=== PATIENT | female | born 1980 | race Caucasian/White ===

== ENCOUNTER 2017-04-28 20:02 | Emergency (ER) | payer SELFPAY ==
[~2017-04-28] VITALS: Ht 165.1 cm; Wt 104.3 kg
[~2017-04-28 20:02] MED LIST: CITA40TA5 PO; DICY10CA3 PO; HYDR-2758 PO; HYDR-971 PO; LISI-334 PO; NAPR-683 PO; NAPR500T4 PO; PROM25TA10 PO
[2017-04-28 20:29] LABS: BILIRUBIN,URINE NEGATIVE (NEG); GLUCOSE,URINE NEGATIVE (NEG); NITRITE,URINE POSITIVE (NEG); PROTEIN,URINE 30 mg/dL (NEG-TRACE)
[2017-04-28] MEDS ORDERED: ONDANSETRON PF 4 MG/2 ML VIAL. IV ONE (20:30)
[2017-04-28] MEDS ORDERED: IV NORMAL SALINE 1000ML BAG 1,000 ML IV ONE (20:30)
[2017-04-28 20:37] LABS: BACTERIA,URINE MODERATE /HPF (0-FEW); RBC,URINE OCC /HPF (0-2); SQUAMOUS EPITHELIAL CELL,UR MOD /LPF; WBC,URINE >40 /HPF (0-4)
--- NOTE | 2017-04-28 20:38 | PHYS DOC ---
Past Medical History Past Medical History: Hypertension, Kidney Stone, Other Additional Past Medical Histor: chronic back pain, fibroids Past Surgical History: Appendectomy, Tubal ligation, Other Additional Past Surgical Histo: CYSTOSCOPY WITH STENT PLACEMENT & REMOVAL, LITHOTRIPSY, Uterine ablation Alcohol Use: None Drug Use: None Adult General Chief Complaint Chief Complaint: PAIN ON URINATION [facility] HPI Patient is a 37 year old female presents to the emergency room stating she's been having chest pain on and off. She states she has a history of hypertension which she does not take medicine for her because she cannot afford to purchase it. Patient states she actually came to the emergency department tonight because she was having bilateral flank pain with painful urination. She states this has been going on for the last few days. She states that she has had some nausea however has not vomited. She denies any fever or chills. Patient states she has not taken anything for the pain or discomfort. She states that she did try to drink plenty of fluids to help flush the kidneys but however was not very successful to the nausea feeling. Review of Systems Review of Systems Constitutional: Denies fever or chills [] Eyes: Denies change in visual acuity, redness, or eye pain [] HENT: Denies nasal congestion or sore throat [] Respiratory: Denies cough or shortness of breath [] Cardiovascular: No additional information not addressed in HPI [] GI: Denies abdominal pain, vomiting, bloody stools or diarrhea C/o nausea : dysuria denies hematuria [] Musculoskeletal: bilateral flank pain Integument: Denies rash or skin lesions [] Neurologic: Denies headache, focal weakness or sensory changes [] Endocrine: Denies polyuria or polydipsia [] All other systems were reviewed and found to be within normal limits, except as documented in this note. Current Medications Current Medications Current Medications Medications (Trade) Dose Ordered Sig/Tameka Start Time Stop Time Status Last Admin Dose Admin Ciprofloxacin/ Dextrose 200 ml @ 200 mls/hr Q12HR 04/28/17 21:00 04/28/17 21:06 200 MLS/HR Clonidine HCl (Catapres) 0.2 mg 1X ONCE 04/28/17 20:45 04/28/17 20:46 DC 04/28/17 21:05 0.2 MG Ondansetron HCl (Zofran) 4 mg 1X ONCE 04/28/17 20:30 04/28/17 20:32 DC 04/28/17 21:03 4 MG Sodium Chloride 1,000 ml @ 1,000 mls/hr 1X ONCE 04/28/17 20:30 04/28/17 21:29 04/28/17 21:05 1,000 MLS/HR Allergies Allergies Allergies Coded Allergies Type Severity Reaction Last Updated Verified tramadol Allergy Severe ITCHING AND HEADACHE 05/03/14 Yes Physical Exam Physical Exam Constitutional: Well developed, well nourished, no acute distress, non-toxic appearance. [] HENT: Normocephalic, atraumatic, bilateral external ears normal, oropharynx moist, no oral exudates, nose normal. [] Eyes: PERRLA, EOMI, conjunctiva normal, no discharge. [] Neck: Normal range of motion, no tenderness, supple, no stridor. [] Cardiovascular:Heart rate regular rhythm, no murmur [] Lungs & Thorax: Bilateral breath sounds clear to auscultation [] Abdomen: Bowel sounds hypoactive, soft, no tenderness, no masses, no pulsatile masses. [] Skin: Warm, dry, no erythema, no rash. [] Back: No tenderness, bilateral CVA tenderness. [] Extremities: No tenderness, no cyanosis, no clubbing, ROM intact, no edema. [] Neurologic: Alert and oriented X 3, normal motor function, normal sensory function, no focal deficits noted. [] Psychologic: Affect normal, judgement normal, mood normal. [] Current Patient Data Vital Signs Vital Signs Date Time Temp Pulse Resp B/P (MAP) Pulse Ox O2 Delivery O2 Flow Rate FiO2 04/28/17 21:05 86 169/79 04/28/17 20:30 98.1 16 97 Room Air 98.1 Lab Values Laboratory Tests Test 04/28/17 20:04 04/28/17 20:23 04/28/17 20:45 Urine Collection Type Unknown Urine Color Yellow Urine Clarity Cloudy Urine pH 6.0 Urine Specific [place] 1.025 Urine Protein 30 mg/dL (NEG-TRACE) Urine Glucose (UA) Negative mg/dL (NEG) Urine Ketones (Stick) Negative mg/dL (NEG) Urine Blood Negative (NEG) Urine Nitrite Positive (NEG) Urine Bilirubin Negative (NEG) Urine Urobilinogen Dipstick 1.0 mg/dL (0.2 mg/dL) Urine Leukocyte Esterase Moderate (NEG) Urine RBC Occ /HPF (0-2) Urine WBC >40 /HPF (0-4) Urine Squamous Epithelial Cells Mod /LPF Urine Bacteria Moderate /HPF (0-FEW) Urine Mucus Marked /LPF POC Urine HCG, Qualitative Hcg negative (Negative) White Blood Count 11.8 x10^3/uL (4.0-11.0) H Red Blood Count 4.77 x10^6/uL (3.50-5.40) Hemoglobin 14.2 g/dL (12.0-15.5) Hematocrit 42.5 % (36.0-47.0) Mean Corpuscular Volume 89 fL (79-100) Mean Corpuscular Hemoglobin 30 pg (25-35) Mean Corpuscular Hemoglobin Concent 33 g/dL (31-37) Red Cell Distribution Width 12.4 % (11.5-14.5) Platelet Count 227 x10^3/uL (140-400) Neutrophils (%) (Auto) 68 % (31-73) Lymphocytes (%) (Auto) 23 % (24-48) L Monocytes (%) (Auto) 8 % (0-9) Eosinophils (%) (Auto) 1 % (0-3) Basophils (%) (Auto) 1 % (0-3) Neutrophils # (Auto) 8.0 x10^3uL (1.8-7.7) H Lymphocytes # (Auto) 2.7 x10^3/uL (1.0-4.8) Monocytes # (Auto) 0.9 x10^3/uL (0.0-1.1) Eosinophils # (Auto) 0.1 x10^3/uL (0.0-0.7) Basophils # (Auto) 0.2 x10^3/uL (0.0-0.2) Sodium Level 142 mmol/L (136-145) Potassium Level 3.5 mmol/L (3.5-5.1) Chloride Level 103 mmol/L (98-107) Carbon Dioxide Level 30 mmol/L (21-32) Anion Gap 9 (6-14) Blood Urea Nitrogen 12 mg/dL (7-20) Creatinine 0.7 mg/dL (0.6-1.0) Estimated GFR (Cockcroft-Gault) 93.6 BUN/Creatinine Ratio 17 (6-20) Glucose Level 100 mg/dL (70-99) H Calcium Level 9.3 mg/dL (8.5-10.1) Total Bilirubin 0.3 mg/dL (0.2-1.0) Aspartate Amino Transferase (AST) 12 U/L (15-37) L Alanine Aminotransferase (ALT) 17 U/L (14-59) Alkaline Phosphatase 83 U/L (46-116) Troponin I Quantitative < 0.017 ng/mL (0.000-0.055) Total Protein 7.6 g/dL (6.4-8.2) Albumin 3.5 g/dL (3.4-5.0) Albumin/Globulin Ratio 0.9 (1.0-1.7) L Laboratory Tests 04/28/17 20:45 Laboratory Tests 04/28/17 20:45 EKG EKG EKG was completed with a heart rate of 86 sinus rhythm noted no ectopy noted no STEMI noted per [] Radiology/Procedures Radiology/Procedures [] Course & Med Decision Making Course & Med Decision Making Pertinent Labs and Imaging studies reviewed. (See chart for details) Patient denies chest pain, SOA at this time she states she has problems with lower leg swelling. Patients BP is elevated currently. 2127 urinalysis was positive for urinary tract infection. Patient had bilateral flank pain. Patient was placed on Cipro here in the emergency department. She was provided with 1 L of IV fluids she is provided with Zofran for nausea. She was provided with clonidine due to elevated blood pressure. She was also provided with hydrocodone for pain and discomfort. Patient will be discharged home in stable condition with recommendations for Cipro twice a day for the next 7 days. She'll be provided with Zofran to take at home for nausea and vomiting. She'll be provided with hydrocodone for pain and discomfort. She is recommended to drink plenty of fluids such as water and cranberry juice. She was also recommended to follow-up with a primary care physician in the next 3-5 days. Patient will also be provided with clonidine patch in which she complains on to prevent prevent rebound hypertension. Patient was recommended to follow up with her primary care physician in regards to her blood pressure and medication regimen. I've spoken with the patient and/or caregivers. I've explained the patient's condition, diagnosis and treatment plan based on information available to me at this time. I've answered the patient's and/or caregivers questions and addressed any concerns. The patient and/or caregivers have a good understanding the patient's diagnosis, condition and treatment plan as can be expected at this point. Vital signs have been stabilized. The patient's condition is stable for discharge from the emergency department. The patient will pursue further outpatient evaluation with her primary care provider or other designated consulting physician as outlined in the discharge instructions. Patient and/or caregivers are agreeable to this plan of care and follow-up instructions have been explained in detail. The patient and/or caregivers have received these instructions in written format and expressed understanding of these discharge instructions. The patient and her caregivers are aware that if any significant change in condition or worsening of symptoms should prompt him to immediately return to this of the closest emergency department. If an emergent department is not readily available I would encourage him to call 911. [] Dragon Disclaimer Dragon Disclaimer This electronic medical record was generated, in whole or in part, using a voice recognition dictation system. Departure Departure Impression: Primary Impression: Pyelonephritis Disposition: HOME, SELF-CARE Condition: STABLE Referrals: MAMADOU MARTINEZ MD (PCP) Patient Instructions: Pyelonephritis, Adult, [id number] Additional Instructions: Activity as tolerated. Medications as prescribed. Hydrocodone DROWSINESS did not take today be alert and oriented. Drink plenty of fluids such as water and cranberry juice. Avoid cranberry juice cocktail, carbonated beverages, caffeine, alcohol, citrus fruits, and caffeine as these are considered to the bladder. Follow-up with her primary care physician in 3-5 days. Return back to emergency department for signs and symptoms of worse. Scripts Hydrocodone/Apap 5-325 (NORCO 5-325 TABLET) 1 Each Tablet 1 TAB PO PRN Q6HRS Y for PAIN, #15 TAB 0 Refills Prov: MARAL CHEATHAM APRN 04/28/17 Ondansetron (ZOFRAN ODT) 4 Mg Tab.rapdis 1 TAB SL Q8HRS, #10 TAB Prov: MARAL CHEATHAM APRN 04/28/17 Ciprofloxacin Hcl (CIPRO) 500 Mg Tablet 1 TAB PO BID, #14 TAB Prov: MARAL CHEATHAM APRN 04/28/17 Clonidine (CLONIDINE TTS-1) 1 Each Patch.tdwk 1 PATCH TD WEEKLY, #3 PATCH Prov: MARAL CHEATHAM APRN 04/28/17 MARAL CHEATHAM APRN Apr 28, 2017 20:38
[2017-04-28] MEDS ORDERED: cloNIDine HCL 0.1 MG TABLET PO ONE (20:45)
[2017-04-28 20:55] LABS: BASO # 0.2 x10^3/uL (0.0-0.2); BASO % 1 % (0-3); EOS % 1 % (0-3); HEMATOCRIT 42.5 % (36.0-47.0); HEMOGLOBIN 14.2 g/dL (12.0-15.5); LYMPH # 2.7 x10^3/uL (1.0-4.8); LYMPH % 23 % (24-48); MEAN CORPUSCULAR HEMOGLOBIN 30 pg (25-35); MEAN CORPUSCULAR HGB CONC 33 g/dL (31-37); MEAN CORPUSCULAR VOLUME 89 fL (79-100); MONO % 8 % (0-9); NEUT % 68 % (31-73); PLATELET COUNT 227 x10^3/uL (140-400); RED BLOOD COUNT 4.77 x10^6/uL (3.50-5.40); RED CELL DISTRIBUTION WIDTH 12.4 % (11.5-14.5); WHITE BLOOD COUNT 11.8 x10^3/uL (4.0-11.0)
[2017-04-28] MEDS ORDERED: CIPROFLOXACIN 400MG PREMIX 200 ML IV SCH (21:00)
[2017-04-28 21:09] LABS: CALCIUM 9.3 mg/dL (8.5-10.1); CREATININE 0.7 mg/dL (0.6-1.0); GFR 93.6; POTASSIUM 3.5 mmol/L (3.5-5.1)
[2017-04-28 21:14] LABS: ALBUMIN 3.5 g/dL (3.4-5.0); ALBUMIN/GLOBULIN RATIO 0.9 (1.0-1.7); TOTAL BILIRUBIN 0.3 mg/dL (0.2-1.0); TOTAL PROTEIN 7.6 g/dL (6.4-8.2)
[2017-04-28] MEDS ORDERED: ONDA4TAB10 SL (21:33)
[2017-04-28] MEDS ORDERED: CLON1PAT TD (21:33)
[2017-04-28] MEDS ORDERED: CIPR500T94 PO (21:33)
[2017-04-28] MEDS ORDERED: HYDR-971 PO (21:33)
[2017-04-28] MEDS ORDERED: HYDROcodone/APAP 5/325MG 1 TAB TABLET PO ONE (22:00)
[2017-04-28 22:10] VITALS: BP 170/87
--- NOTE | 2017-04-29 06:45 | EKG ---
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
== END 2017-04-28 22:24 | disposition home or self-care (01) ==
LOC: ER 20:02
DX: N12 Tubulo-interstitial nephritis, not specified as acute or chronic (principal); I10 Essential (primary) hypertension; G89.29 Other chronic pain; Z87.442 Personal history of urinary calculi; Z98.51 Tubal ligation status; Z88.5 Allergy status to narcotic agent
CPT/HCPCS: 36415; 80053; 81001; 81025; 84484; 85025; 87086; 93005; 96365; 96375; 99285; J0744; J2405; J7030; 87186

== ENCOUNTER 2017-07-19 20:38 | Emergency (ER) | payer SELFPAY ==
[2017-07-19 21:12] LABS: URINE HCG POC HCG NEGATIVE (Negative)
[2017-07-19 21:39] LABS: ADD MAN DIFF? NO; BILIRUBIN,URINE NEGATIVE (NEG); CLARITY,URINE CLEAR; COLOR,URINE YELLOW; GLUCOSE,URINE NEGATIVE (NEG); NITRITE,URINE NEGATIVE (NEG); PROTEIN,URINE NEGATIVE (NEG-TRACE)
[2017-07-19 21:41] LABS: BASO # 0.1 x10^3/uL (0.0-0.2); BASO % 1 % (0-3); EOS # 0.2 x10^3/uL (0.0-0.7); EOS % 2 % (0-3); HEMATOCRIT 42.9 % (36.0-47.0); HEMOGLOBIN 14.5 g/dL (12.0-15.5); LYMPH # 2.7 x10^3/uL (1.0-4.8); LYMPH % 29 % (24-48); MEAN CORPUSCULAR HEMOGLOBIN 30 pg (25-35); MEAN CORPUSCULAR HGB CONC 34 g/dL (31-37); MEAN CORPUSCULAR VOLUME 90 fL (79-100); MONO # 0.9 x10^3/uL (0.0-1.1); MONO % 10 % (0-9); NEUT # 5.5 x10^3uL (1.8-7.7); NEUT % 58 % (31-73); PLATELET COUNT 214 x10^3/uL (140-400); RED BLOOD COUNT 4.78 x10^6/uL (3.50-5.40); RED CELL DISTRIBUTION WIDTH 13.1 % (11.5-14.5); WHITE BLOOD COUNT 9.4 x10^3/uL (4.0-11.0)
[2017-07-19 21:46] LABS: BACTERIA,URINE MODERATE /HPF (0-FEW); HYALINE CASTS, URINE FEW /HPF; RBC,URINE OCC /HPF (0-2); SQUAMOUS EPITHELIAL CELL,UR MOD /LPF
[2017-07-19 21:59] LABS: ANION GAP 6 (6-14); BLOOD UREA NITROGEN 14 mg/dL (7-20); BUN/CREATININE RATIO 16 (6-20); CALCIUM 8.5 mg/dL (8.5-10.1); CARBON DIOXIDE 30 mmol/L (21-32); CHLORIDE 102 mmol/L (98-107); CREATININE 0.9 mg/dL (0.6-1.0); GFR 70.1; GLUCOSE 78 mg/dL (70-99); POTASSIUM 3.4 mmol/L (3.5-5.1); SODIUM 138 mmol/L (136-145)
[2017-07-19] MEDS: MORPHINE SULFATE 4 MG/ML DISP.SYRIN. IV ×2 (22:01)
[2017-07-19 22:05] LABS: ALBUMIN 3.5 g/dL (3.4-5.0); ALBUMIN/GLOBULIN RATIO 0.9 (1.0-1.7); ALK PHOS 79 U/L (46-116); ALT (SGPT) 18 U/L (14-59); AST (SGOT) 13 U/L (15-37); TOTAL BILIRUBIN 0.2 mg/dL (0.2-1.0); TOTAL PROTEIN 7.5 g/dL (6.4-8.2)
[2017-07-19 22:34] LABS: TROPONINI < 0.017 ng/mL (0.000-0.055)
== END 2017-07-20 00:57 | disposition home or self-care (01) ==
LOC: ER 07-20 00:57
DX: N39.0 Urinary tract infection, site not specified (principal); D25.9 Leiomyoma of uterus, unspecified; N83.209 Unspecified ovarian cyst, unspecified side; I10 Essential (primary) hypertension; G89.29 Other chronic pain; Z87.442 Personal history of urinary calculi; Z98.51 Tubal ligation status; Z88.5 Allergy status to narcotic agent
CPT/HCPCS: 71045; 76830; 76856; 80053; 81001; 81025; 84484; 85025; 87086; 87491; 87591; 93005; 96374; 99285-25; J2270

== ENCOUNTER 2017-08-17 20:24 | Emergency (ER) | payer SELFPAY ==
[2017-08-18 08:34] LABS: NEGATIVE OBC STREP NEG; POSITIVE OBC STREP POS
== END 2017-08-17 21:30 | disposition home or self-care (01) ==
LOC: ER 20:24
DX: J02.0 Streptococcal pharyngitis (principal); I10 Essential (primary) hypertension; G89.29 Other chronic pain; Z87.442 Personal history of urinary calculi; Z90.49 Acquired absence of other specified parts of digestive tract; Z98.51 Tubal ligation status; Z88.5 Allergy status to narcotic agent
CPT/HCPCS: 87880; 99283

== ENCOUNTER 2017-10-04 22:44 | Emergency (ER) | payer SELFPAY ==
[2017-10-04] MEDS: KETOROLAC 60 MG/2 ML INJ. IM (23:09)
== END 2017-10-04 23:17 | disposition home or self-care (01) ==
LOC: ER 23:17
DX: M54.32 Sciatica, left side (principal); G89.29 Other chronic pain; I10 Essential (primary) hypertension; Z87.442 Personal history of urinary calculi; Z88.6 Allergy status to analgesic agent
CPT/HCPCS: 96372; 99283; J1885

== ENCOUNTER 2017-10-27 19:20 | Emergency (ER) | payer SELFPAY ==
[2017-10-27 19:39] LABS: ADD MAN DIFF? NO
[2017-10-27 19:40] LABS: BASO # 0.1 x10^3/uL (0.0-0.2); BASO % 1 % (0-3); EOS # 0.4 x10^3/uL (0.0-0.7); EOS % 3 % (0-3); HEMATOCRIT 41.2 % (36.0-47.0); HEMOGLOBIN 14.4 g/dL (12.0-15.5); LYMPH # 3.5 x10^3/uL (1.0-4.8); LYMPH % 28 % (24-48); MEAN CORPUSCULAR HEMOGLOBIN 31 pg (25-35); MEAN CORPUSCULAR HGB CONC 35 g/dL (31-37); MEAN CORPUSCULAR VOLUME 89 fL (79-100); MONO % 8 % (0-9); NEUT # 7.5 x10^3uL (1.8-7.7); NEUT % 60 % (31-73); PLATELET COUNT 224 x10^3/uL (140-400); RED BLOOD COUNT 4.64 x10^6/uL (3.50-5.40); RED CELL DISTRIBUTION WIDTH 12.9 % (11.5-14.5); WHITE BLOOD COUNT 12.5 x10^3/uL (4.0-11.0)
[2017-10-27 19:52] LABS: ANION GAP 7 (6-14); BLOOD UREA NITROGEN 15 mg/dL (7-20); BUN/CREATININE RATIO 15 (6-20); CALCIUM 8.9 mg/dL (8.5-10.1); CARBON DIOXIDE 29 mmol/L (21-32); CHLORIDE 101 mmol/L (98-107); GFR 62.1; GLUCOSE 103 mg/dL (70-99); SODIUM 137 mmol/L (136-145)
[2017-10-27] MEDS: ASPIRIN 325 MG TABLET PO (19:53)
[2017-10-27] MEDS: LIDO:MAALOX 1:1 20 ML SINGLE DOSE. SWSW (19:53)
[2017-10-27 19:58] LABS: ALBUMIN 3.6 g/dL (3.4-5.0); ALBUMIN/GLOBULIN RATIO 0.8 (1.0-1.7); ALK PHOS 94 U/L (46-116); ALT (SGPT) 24 U/L (14-59); AST (SGOT) 16 U/L (15-37); LIPASE 61 U/L (73-393); TOTAL BILIRUBIN 0.2 mg/dL (0.2-1.0); TOTAL PROTEIN 7.9 g/dL (6.4-8.2)
[2017-10-27 20:00] LABS: TROPONINI < 0.017 ng/mL (0.000-0.055)
== END 2017-10-27 20:30 | disposition home or self-care (01) ==
LOC: ER 19:20
DX: R07.89 Other chest pain (principal); I10 Essential (primary) hypertension; G89.29 Other chronic pain; Z98.51 Tubal ligation status; Z88.5 Allergy status to narcotic agent; Z87.442 Personal history of urinary calculi
CPT/HCPCS: 36415; 71045; 80053; 83690; 84484; 85025; 93005; 99285-25

== ENCOUNTER 2018-10-08 20:23 | Emergency (ER) | payer SELFPAY ==
[~2018-10-08] VITALS: Ht 167.6 cm; Wt 104.3 kg
[~2018-10-08 20:23] MED LIST changes: +ACET1TAB33 PO; +CIPR500T94 PO; +CLON1PAT TD; +CYCL10TA2 PO; -HYDR-2758 PO; +HYDR-2761 PO; +HYDR-3164 PO; -HYDR-971 PO; +NAPR-514 PO; -NAPR500T4 PO; +NITR100C62 PO; +ONDA4TAB10 SL; +PENI500T PO
[2018-10-08 20:33] VITALS: BP 203/103
--- NOTE | 2018-10-08 21:17 | PHYS DOC ---
Past Medical History Past Medical History: Hypertension, Kidney Stone, Other Additional Past Medical Histor: chronic back pain, fibroids (MELCHOR JOHNSON APRN) Past Surgical History: Appendectomy, Tubal ligation, Other Additional Past Surgical Histo: CYSTOSCOPY WITH STENT PLACEMENT & REMOVAL, LITHOTRIPSY, Uterine ablation (MELCHOR JOHNSON APRN) Smoking: Cigarettes, Less than 1pk/day Alcohol Use: None Drug Use: None (MELCHOR JOHNSON APRN) Adult General Chief Complaint Chief Complaint: LOWER EXTREMITY SWELLING HPI HPI Patient is a 38-year-old female who presents to ER with the chief complaint of right knee and calf pain that started 3 days ago and has persisted constantly. It is described as a constant throbbing pain which is rated at a severity of 7/10. At night she elevated the leg and states that helps her pain somewhat. Nothing completely makes the pain better. The patient states that she had a similar episode 2-3 months ago and was seen at [facility]. She states that she had fluid on her knees and they took a sample and that they told her to take ibuprofen and it improved. Patient states that she has been taking ibuprofen and Tylenol at home the last time she had ibuprofen was 400 mg at 10 AM. Has been non-compliant with medical care due to financial reasons and has not been seeing a PCP. Has not taken Lisinopril for a year. (MELCHOR JOHNSON APRN) Review of Systems Review of Systems General: Denies fevers, States that she gets "hot flashes" HEENT: Denies sore throat, or changes in vision. Respiratory: Denies cough or shortness of breath. Cardiac: Denies chest pain or palpitations. GI: Denies nausea, denies vomiting, denies diarrhea : Denies dysuria, or frequency. Skin: Denies rashes, or sores. Musculoskeletal: Extremity pain to the R knee and R calf. Neurological: Denies headache, or dizziness. Psychiatric: Denies SI, or HI. Complete Systems were reviewed and found to be within normal limits, except as documented in this note. (MELCHOR JOHNSON APRN) Current Medications Current Medications Current Medications Medications (Trade) Dose Ordered Sig/Tameka Start Time Stop Time Status Last Admin Dose Admin Dexamethasone (Decadron) 10 mg 1X ONCE 10/08/18 21:30 10/08/18 21:31 DC 10/08/18 21:30 10 MG Ibuprofen (Motrin) 800 mg 1X ONCE 10/08/18 21:30 10/08/18 21:31 DC 10/08/18 21:30 800 MG Ketorolac Tromethamine (Toradol Im) 30 mg 1X ONCE 10/08/18 21:30 10/08/18 21:30 DC (MELCHOR SHAH DO) Allergies Allergies Allergies Coded Allergies Type Severity Reaction Last Updated Verified ketorolac Allergy Intermediate HIVES 10/08/18 Yes (MELCHOR SHHA DO) Physical Exam Physical Exam Constitutional: Well developed, well nourished, no acute distress, non-toxic appearance. [] HENT: Normocephalic, atraumatic, oropharynx moist. [] Eyes: conjunctiva normal, no discharge. [] Neck: Normal range of motion, no tenderness. [] Cardiovascular:Heart rate regular rhythm, no murmur [] Lungs & Thorax: Bilateral breath sounds clear to auscultation [] Abdomen: Soft, no masses, no pulsatile masses. States that she has chronic tenderness. Skin: Warm, dry, no erythema, no rash. [] Extremities: Tenderness to the R calf, and R knee, reduced ROM due to pain. [] Neurologic: Alert and oriented X 3, normal sensory function in the bilateral lower extremities. Psychologic: Affect normal, judgement normal, mood normal. [] (MELCHOR JOHNSON APRN) Current Patient Data Vital Signs Vital Signs Date Time Temp Pulse Resp B/P (MAP) Pulse Ox O2 Delivery O2 Flow Rate FiO2 10/08/18 20:33 99.9 103 20 203/103 (136) 98 Room Air 99.9 (MELCHOR SHAH DO) EKG EKG [] (MELCHOR JOHNSON APRN) Radiology/Procedures Radiology/Procedures Preliminary read of the X-ray of the knee by Dr. Melchor Shah shows no acute fractures, or dislocations. []PATIENT: SAMARA REID MACCOUNT: [id number]#: [id number] : 1980 LOCATION: ER AGE: 38 SEX: F EXAM STATUS: REG ER ORD. PHYSICIAN: MELCHOR JOHNSON APRN REASON: calf pain; r/o dvt PROCEDURE: VENOUS LOWER EXTREMITY RIGHT Right Lower Extremity Venous Doppler Ultrasound History: 3 days of calf pain Comparison: None Procedure: Color flow, duplex, spectral analysis and 2D images are obtained with and without compression in the area of the common femoral vein, superficial femoral vein - femoral vein junction, main femoral vein (superficial femoral vein) and popliteal vein. Veins of the proximal calf are also imaged. Findings: There is normal duplex flow, color flow and compressibility of all visualized vein segments. No evidence of deep venous thrombus is present. Impression: No evidence of DVT. Electronically signed by: Ruben Dowell III, MD (10/08/2018 10:36 PM) [facility] (MELCHOR JOHNSON APRN) Course & Med Decision Making Course & Med Decision Making Pertinent Labs and Imaging studies reviewed. (See chart for details) 9:30 PM: Discussed with patient pain management. Nurse went into patient's room and patient states that she realized that she was allergic to toradol and not tramadol. Changed order to 800 mg of Ibuprofen. Discussed with patient the need to follow up with patient in regard to HTN. The patient states that she has a provider that she has recently found that will use income-based payment that she is planning on going to see. 10:45 PM: Discussed results of xray and ultrasound. Instructed patient to rest, wear kunal wrap, and take naproxen. Also instructed patient to follow up with pcp. Can also use warm compresses. Patient was agreeable to plan. (MELCHOR JOHNSON APRN) Dragon Disclaimer Dragon Disclaimer This electronic medical record was generated, in whole or in part, using a voice recognition dictation system. (MELCHOR JOHNSON APRN) Departure Departure Impression: Primary Impression: Bursitis Disposition: 01 HOME, SELF-CARE Condition: STABLE Referrals: NO PCP (PCP) Patient Instructions: Bursitis, [id number]-[id number] Additional Instructions: Thank you for allowing us to take care of you. Please as we discussed use warm compresses to the knee, use kunal wrap, use Naproxen as prescribed, and rest/elevate the extremity. Return to ER if you develop signs or symptoms of a septic joint such as fevers, redness, or warmth to the extremity. Scripts Naproxen (NAPROXEN) 500 Mg Tablet 1 TAB PO BID, #60 TAB 0 Refills Prov: MELCHOR JOHNSON APRN 10/08/18 Attending Signature Attending Signature I have reviewed the PA/FLATWORK WASHER's note and plan of care. I was available for consultation as needed during the patient's visit in the emergency department. I agree with the clinical impression, plan, and disposition. (MELCHOR SHAH DO) Problem Qualifiers Primary Impression: Bursitis Bursitis location: knee Knee bursitis location: suprapatellar bursitis Laterality: right Qualified Codes: M70.51 - Other bursitis of knee, right knee MELCHOR JOHNSON APRN Oct 08, 2018 21:17 MELCHOR SHAH DO Oct 09, 2018 05:41
[2018-10-08] MEDS ORDERED: KETOROLAC 60 MG/2 ML VIAL. IM ONE (21:30)
[2018-10-08] MEDS ORDERED: IBUPROFEN 400 MG TABLET. PO ONE (21:30)
[2018-10-08] MEDS ORDERED: DEXAMETHASONE 4 MG TABLET PO ONE (21:30)
[2018-10-08] MEDS ORDERED: NAPR-514 PO ×2 (22:00→22:02)
--- NOTE | 2018-10-08 22:39 | RAD ---
Right Lower Extremity Venous Doppler Ultrasound History: 3 days of calf pain Comparison: None Procedure: Color flow, duplex, spectral analysis and 2D images are obtained with and without compression in the area of the common femoral vein, superficial femoral vein - femoral vein junction, main femoral vein (superficial femoral vein) and popliteal vein. Veins of the proximal calf are also imaged. Findings: There is normal duplex flow, color flow and compressibility of all visualized vein segments. No evidence of deep venous thrombus is present. Impression: No evidence of DVT. Electronically signed by: Ruben Dowell III, MD (10/08/2018 10:36 PM) [facility]
--- NOTE | 2018-10-09 08:59 | RAD ---
3 view study of the right knee Clinical indications: Right knee pain. FINDINGS: No acute fracture or dislocation or lytic process is evident. Degenerative chondrocalcinosis of the medial and lateral menisci are seen. IMPRESSION: No acute fracture. Electronically signed by: Doe Feliz MD (10/09/2018 8:56 AM) [facility]
== END 2018-10-08 23:10 | disposition home or self-care (01) ==
LOC: ER 20:23
DX: M70.51 Other bursitis of knee, right knee (principal); M79.661 Pain in right lower leg; I10 Essential (primary) hypertension; G89.29 Other chronic pain; F17.210 Nicotine dependence, cigarettes, uncomplicated; Z90.89 Acquired absence of other organs; Z98.51 Tubal ligation status; Z91.14 Patient's other noncompliance with medication regimen; Z88.8 Allergy status to other drugs, medicaments and biological substances; Y93.89 Activity, other specified
CPT/HCPCS: 73562; 93971; 99284; J8540

== ENCOUNTER 2019-02-12 19:44 | Emergency (ER) | payer SELFPAY ==
[~2019-02-12] VITALS: Ht 167.6 cm; Wt 97.5 kg
[2019-02-12 22:16] VITALS: BP 187/100
[2019-02-12] MEDS ORDERED: BACI28.34 TP (22:28)
[2019-02-12] MEDS ORDERED: CEPH-264 PO (22:28)
--- NOTE | 2019-02-12 22:28 | PHYS DOC ---
Past Medical History Past Medical History: Hypertension, Kidney Stone, Other Additional Past Medical Histor: chronic back pain, fibroids Past Surgical History: Appendectomy, Tubal ligation, Other Additional Past Surgical Histo: CYSTOSCOPY WITH STENT PLACEMENT & REMOVAL, LITHOTRIPSY, Uterine ablation Alcohol Use: None Drug Use: None Adult General Chief Complaint Chief Complaint: INSECT BITE HPI HPI Patient is a 38 year old [f__sex] who presents with [] Review of Systems Review of Systems Constitutional: Denies fever or chills [] Eyes: Denies change in visual acuity, redness, or eye pain [] HENT: Denies nasal congestion or sore throat [] Respiratory: Denies cough or shortness of breath [] Cardiovascular: No additional information not addressed in HPI [] GI: Denies abdominal pain, nausea, vomiting, bloody stools or diarrhea [] : Denies dysuria or hematuria [] Musculoskeletal: Denies back pain or joint pain [] Integument: Denies rash or skin lesions [] Neurologic: Denies headache, focal weakness or sensory changes [] Endocrine: Denies polyuria or polydipsia [] All other systems were reviewed and found to be within normal limits, except as documented in this note. Allergies Allergies Allergies Coded Allergies Type Severity Reaction Last Updated Verified ketorolac Allergy Intermediate HIVES 10/08/18 Yes Physical Exam Physical Exam Constitutional: Well developed, well nourished, no acute distress, non-toxic appearance. [] HENT: Normocephalic, atraumatic, bilateral external ears normal, oropharynx moist, no oral exudates, nose normal. [] Eyes: PERRLA, EOMI, conjunctiva normal, no discharge. [] Neck: Normal range of motion, no tenderness, supple, no stridor. [] Cardiovascular:Heart rate regular rhythm, no murmur [] Lungs & Thorax: Bilateral breath sounds clear to auscultation [] Abdomen: Bowel sounds normal, soft, no tenderness, no masses, no pulsatile masses. [] Skin: Warm, dry, no erythema, no rash. [] Back: No tenderness, no CVA tenderness. [] Extremities: No tenderness, no cyanosis, no clubbing, ROM intact, no edema. [] Neurologic: Alert and oriented X 3, normal motor function, normal sensory function, no focal deficits noted. [] Psychologic: Affect normal, judgement normal, mood normal. [] Current Patient Data Vital Signs Vital Signs Date Time Temp Pulse Resp B/P (MAP) Pulse Ox O2 Delivery O2 Flow Rate FiO2 02/12/19 21:14 98.4 103 22 214/108 (143) 98 Room Air 98.4 EKG EKG [] Radiology/Procedures Radiology/Procedures [] Course & Med Decision Making Course & Med Decision Making Pertinent Labs and Imaging studies reviewed. (See chart for details) [] Dragon Disclaimer Dragon Disclaimer This electronic medical record was generated, in whole or in part, using a voice recognition dictation system. Departure Departure Impression: Primary Impression: Infected insect bite of right thigh Additional Impression: Cellulitis of right thigh Disposition: HOME, SELF-CARE Condition: STABLE Referrals: NO PCP (PCP) Patient Instructions: Cellulitis, Kugo-gj-Ealk, Insect Bite, [id number]-[id number] Additional Instructions: Fill the prescriptions and use them as directed. You may take Tylenol or ibuprofen as needed for pain or fever. Recommend application of warm moist heat to the area 4 times a day and as needed for comfort. Follow-up with her primary care doctor if symptoms persist, return to the ER if symptoms worsen. Scripts Bacitracin/Polymyxin B Sulfate (POLYSPORIN TOPICAL OINT) 28.3 Gm Oint...g. 1 JAZIEL TP TID for WOUND CARE, #1 TUBE 0 Refills DIRECTED BY PHYSICIAN Prov: NIDIA PAVON APRN 02/12/19 Cephalexin (KEFLEX) 500 Mg Capsule 1 CAP PO TID, #21 CAP 0 Refills Prov: NIDIA PAVON APRN 02/12/19 Problem Qualifiers Primary Impression: Infected insect bite of right thigh Encounter type: initial encounter Qualified Codes: S70.361A - Insect bite (nonvenomous), right thigh, initial encounter; L08.9 - Local infection of the skin and subcutaneous tissue, unspecified; W57.XXXA - Bitten or stung by nonvenomous insect and other nonvenomous arthropods, initial encounter NIDIA PAVON APRN Feb 12, 2019 22:28
== END 2019-02-12 22:45 | disposition home or self-care (01) ==
LOC: ER 19:44
DX: S70.361A Insect bite (nonvenomous), right thigh, initial encounter (principal); L08.9 Local infection of the skin and subcutaneous tissue, unspecified; I10 Essential (primary) hypertension; G89.29 Other chronic pain; Z88.6 Allergy status to analgesic agent; W57.XXXA Bitten or stung by nonvenomous insect and other nonvenomous arthropods, initial encounter; Y93.89 Activity, other specified; Y92.89 Other specified places as the place of occurrence of the external cause; Y99.8 Other external cause status
CPT/HCPCS: 99283

== ENCOUNTER 2019-12-18 11:32 | Emergency (ER) | payer SELFPAY ==
[~2019-12-18] VITALS: Ht 165.1 cm; Wt 113.0 kg
[~2019-12-18 11:32] MED LIST changes: +BACI28.34 TP; +CEPH-264 PO
[2019-12-18 12:17] VITALS: BP 186/100
[2019-12-18] MEDS ORDERED: predniSONE 10 MG TABLET PO ONE (12:30)
[2019-12-18] MEDS ORDERED: PRED20TA PO (12:38)
--- NOTE | 2019-12-18 12:39 | PHYS DOC ---
Past Medical History Past Medical History: Hypertension, Kidney Stone Additional Past Medical Histor: chronic back pain, fibroids Past Surgical History: Appendectomy, Tubal ligation, Other Additional Past Surgical Histo: "urinary stents", "ovary surgeries" Smoking Status: Former Smoker Alcohol Use: None Drug Use: None General Adult EDM: Chief Complaint: SKIN PROBLEM HPI: HPI: Patient is a 39 year old female who presents with generalized red itchy rash that started 3 days ago. Patient reports that she believes she got into some poison stacey. She has been taking Benadryl pills and applying Benadryl cream at home. He reports she has been trying to manage it at home but this morning she woke up and she had bilateral eye swelling and redness. Patient denies shortness of breath, nausea, vomiting, diarrhea, shortness of air, difficulty swallowing, fevers, vision difficulties. Review of Systems: Review of Systems: Constitutional: Denies fever or chills. [] Eyes: Denies change in visual acuity. [] HENT: Denies nasal congestion or sore throat. [] Respiratory: Denies cough or shortness of breath. [] Cardiovascular: Denies chest pain or edema. [] GI: Denies abdominal pain, nausea, vomiting, or diarrhea. [] Musculoskeletal: Denies back pain or joint pain. [] Integument: See HPI Neurologic: Denies headache, focal weakness or sensory changes. [] Lymphatic: Denies swollen glands. [] Psychiatric: Denies depression or anxiety. [] Heart Score: Risk Factors: Risk Factors: DM, Current or recent (<one month) smoker, HTN, HLP, family history of CAD, obesity. Risk Scores: Score 0 - 3: 2.5% MACE over next 6 weeks - Discharge Home Score 4 - 6: 20.3% MACE over next 6 weeks - Admit for Clinical Observation Score 7 - 10: 72.7% MACE over next 6 weeks - Early Invasive Strategies Current Medications: Current Medications Medications (Trade) Dose Ordered Sig/Tameka Start Time Stop Time Status Last Admin Dose Admin Prednisone (Prednisone) 50 mg 1X ONCE 12/18/19 12:30 12/18/19 12:31 DC Allergies: Allergies: Allergies Coded Allergies Type Severity Reaction Last Updated Verified ketorolac Allergy Intermediate HIVES 10/08/18 Yes Physical Exam: PE: Constitutional: Well developed, well nourished, no acute distress, non-toxic appearance. [] HENT: Normocephalic, atraumatic, bilateral external ears normal, nose normal[] Eyes: PERRLA, EOMI, conjunctiva normal, no discharge; bilateral eye swelling and redness noted to eyelids, no drainage Neck: Normal range of motion, no stridor. [] Cardiovascular:Heart rate regular rhythm Lungs & Thorax: Respirations even and unlabored, no retractions, no respiratory distress Skin: Warm, dry, generalized erythremic rash patchy slightly raised rash with some vesicles noted to face, trunk, and upper extremities bilat consistent with contact dermatitis Extremities: No cyanosis, ROM intact, no edema. [] Neurologic: Alert and oriented X 3, no focal deficits noted. [] Psychologic: Affect normal, judgement normal, mood normal. [] Current Patient Data: Vital Signs: Vital Signs Date Time Temp Pulse Resp B/P (MAP) Pulse Ox O2 Delivery O2 Flow Rate FiO2 12/18/19 12:17 98.7 91 16 186/100 (128) 98 98.7 EKG: EKG: [] Radiology/Procedures: Radiology/Procedures: [] Course & Med Decision Making: Course & Med Decision Making Pertinent Labs and Imaging studies reviewed. (See chart for details) [] Dragon Disclaimer: Dragon Disclaimer: This electronic medical record was generated, in whole or in part, using a voice recognition dictation system. Departure Departure Impression: Primary Impression: Contact dermatitis Qualified Codes: L25.9 - Unspecified contact dermatitis, unspecified cause Disposition: HOME, SELF-CARE Condition: STABLE Referrals: NO PCP (PCP) Patient Instructions: Contact Dermatitis, [id number] Additional Instructions: Fill prescription(s) and use as directed. Recommend [id number] Benadryl and [id number] Benadryl itch relief cream or calamine lotion for relief of itching. May also apply a mixture of 50% water 50% vinegar to affected areas to help dry rash up. Follow up with your primary care doctor if symptoms worsen or persist. Scripts Prednisone (PREDNISONE) 20 Mg Tablet 1 TAB PO UD for 12 Days, #15 TAB 2 tabs by mouth days 1,2,3 then 1.5 tabs by mouth days 4,5,6 then 1 tab by mouth days 7,8,9 then 0.5 tab by mouth day ,,12 Prov: [facility] TECHNICAL OFFICER 12/18/19 Justicifation of Admission Dx: Justifications for Admission: Justification of Admission Dx: N/A [employer] [employer] TECHNICAL OFFICER Dec 18, 2019 12:39
== END 2019-12-18 12:46 | disposition home or self-care (01) ==
LOC: ER 11:32
DX: L25.9 Unspecified contact dermatitis, unspecified cause (principal); I10 Essential (primary) hypertension; G89.29 Other chronic pain; Z87.891 Personal history of nicotine dependence; Z88.6 Allergy status to analgesic agent
CPT/HCPCS: 99283; J7512

== ENCOUNTER 2021-01-07 20:31 | Emergency (ER) | payer SELFPAY ==
[~2021-01-07] VITALS: Ht 165.1 cm; Wt 81.8 kg
[~2021-01-07 20:31] MED LIST changes: -LISI-334 PO; +LISI20TA18 PO; +PRED20TA PO
[2021-01-07] MEDS ORDERED: fentaNYL PF VIAL 100 MCG/2 ML VIAL IM ONE (22:15)
--- NOTE | 2021-01-07 22:29 | PHYS DOC ---
Past Medical History Past Medical History: Hypertension, Kidney Stone Additional Past Medical Histor: chronic back pain, fibroids Past Surgical History: Appendectomy, Tubal ligation, Other Additional Past Surgical Histo: "urinary stents", "ovary surgeries" Smoking Status: Former Smoker Alcohol Use: None Drug Use: None General Adult EDM: Chief Complaint: FOOT INJURY PAIN HPI: HPI: Patient is a 40 year old female who presents with left ankle/foot pain. The patient reports falling in her front yard and injuring her left ankle. Reports hearing "3 audible pops." The patients pain is localized to her lateral left ankle, is non-radiating, and is rated 9/10 in severity. She is unable to bear weight currently. The patient states that she previously "shattered" her left foot years ago. Patient denies head injury or LOC. Denies any other significant complaints at this time. Review of Systems: Review of Systems: Constitutional: Denies fever or chills Eyes: Denies redness or eye pain HENT: Denies nasal congestion or sore throat Respiratory: Denies cough or shortness of breath Cardiovascular: Denies chest pain or palpitations GI: Denies abdominal pain, nausea, or vomiting : Denies dysuria or hematuria Musculoskeletal: reports left ankle/foot pain; Denies back pain Integument: Reports black lesion on left foot; Denies rashes Neurologic: Denies headache, focal weakness or sensory changes Complete systems were reviewed and found to be within normal limits, except as documented in this note. Heart Score: C/O Chest Pain: N/A Current Medications: Current Medications Medications (Trade) Dose Ordered Sig/[facility] Start Time Stop Time Status Last Admin Dose Admin Fentanyl Citrate (Fentanyl 2ml Vial) 50 mcg 1X ONCE 01/07/21 22:15 01/07/21 22:16 DC Allergies: Allergies: Allergies Coded Allergies Type Severity Reaction Last Updated Verified ketorolac Allergy Intermediate HIVES 10/08/18 Yes Physical Exam: PE: Constitutional: Well developed, well nourished, in acute distress due to ankle pain HENT: Normocephalic, atraumatic Eyes: PERRL, EOMI, conjunctiva normal, no discharge Neck: Normal range of motion, no tenderness, supple Lungs & Thorax: No respiratory distress, equal chest rise and fall Abdomen: Soft, no tenderness Skin: Warm, dry, no erythema, no rash Back: No tenderness, no CVA tenderness Extremities: Tenderness in the lateral left ankle with associated edema, normal capillary refill and sensation in all extremities Neurologic: Alert and oriented X 3, normal motor function, normal sensory function, no focal deficits noted Psychologic: Affect normal, judgment normal Radiology/Procedures: Radiology/Procedures: PROCEDURE: FOOT and ANKLE LEFT 3V Exam: Left ankle 3 views. Left foot 3 views INDICATION: Pain status post fall TECHNIQUE: Frontal, lateral oblique views of the left ankle and left foot Comparisons: None FINDINGS: Ankle: There is a obliquely or acute fracture to the distal fibula. Overlying soft tissue swelling. Joint spaces are well-maintained. Bone mineralization is normal. Foot: Bone mineralization is normal. No acute or healed fractures. Soft tissues are unremarkable. Joint spaces are well-maintained. IMPRESSION: 1. Obliquely oriented fracture at the left distal fibula. 2. No acute osseous abnormality at the left foot. Electronically signed by: Brodie Monreal MD (01/07/2021 11:48 PM) [facility] Course & Med Decision Making: Course & Med Decision Making Pertinent imaging studies reviewed. (See chart for details) Patient presented to the ER with left ankle pain after falling. Fentanyl was adm inistered for pain management. Xray showed evidence of distal fibular fracture. Patient was placed in a walking boot. Patient stable for discharge with outpatient follow-up with PCP. Discussed findings and plan with patient, who acknowledges understanding and agreement. Krista Disclaimer: Krista Disclaimer: This electronic medical record was generated, in whole or in part, using a voice recognition dictation system. Departure Departure Impression: Primary Impression: Fracture of distal end of fibula Qualified Codes: S82.832A - Other fracture of upper and lower end of left fibula, initial encounter for closed fracture Disposition: HOME / SELF CARE / HOMELESS Condition: STABLE Referrals: NO PCP (PCP) HERSON SEVERINO DO Patient Instructions: Crutch Use, [id number], Fibular Fracture, Ankle, Adult, Treated with or without Immobilization Additional Instructions: ICE area of discomfort 20 min on then leave off next 20 mins. Repeat several times daily as needed for pain or discomfort. Take over the counter Tylenol and/or Ibuprofen for pain or discomfort. Scripts Hydrocodone Bit/Acetaminophen (HYDROCODONE-APAP 5-325 ) 1 Tab Tablet 0.5-1 TAB PO PRN Q6HRS PRN for PAIN, #10 TAB 0 Refills Prov: ANDRE SHAH DO 01/08/21 ANDRE SHAH DO Jan 07, 2021 22:29
[2021-01-07 22:40] VITALS: BP 184/93
--- NOTE | 2021-01-07 23:51 | RAD ---
Exam: Left ankle 3 views. Left foot 3 views INDICATION: Pain status post fall TECHNIQUE: Frontal, lateral oblique views of the left ankle and left foot Comparisons: None FINDINGS: Ankle: There is a obliquely or acute fracture to the distal fibula. Overlying soft tissue swelling. Joint sp aces are well-maintained. Bone mineralization is normal. Foot: Bone mineralization is normal. No acute or healed fractures. Soft tissues are unremarkable. Joint spa alonso are well-maintained. IMPRESSION: 1. Obliquely oriented fracture at the left distal fibula. 2. No acute osseous abnormality at the left foot. Electronically signed by: Brodie Monreal MD (01/07/2021 11:48 PM) JOE[facility]
[2021-01-08] MEDS ORDERED: HYDR-2761 PO ×2 (00:13→00:15)
== END 2021-01-08 00:46 | disposition home or self-care (01) ==
LOC: ER 20:31
DX: S82.832A Other fracture of upper and lower end of left fibula, initial encounter for closed fracture (principal); I10 Essential (primary) hypertension; Z87.442 Personal history of urinary calculi; G89.29 Other chronic pain; Z88.8 Allergy status to other drugs, medicaments and biological substances; W18.39XA Other fall on same level, initial encounter; Y93.89 Activity, other specified; Y92.89 Other specified places as the place of occurrence of the external cause; Y99.8 Other external cause status
CPT/HCPCS: 73610; 73630; 96372; 99284; J3010

== ENCOUNTER 2021-09-01 21:06 | Emergency (ER) | payer SELFPAY ==
[~2021-09-01] VITALS: Ht 165.1 cm; Wt 106.6 kg
[~2021-09-01 21:06] MED LIST changes: -CITA40TA5 PO; +CITA40TA6 PO; +CYCL10TA19 PO; -CYCL10TA2 PO
[2021-09-01] MEDS ORDERED: MORPHINE SULFATE 4 MG/ML INJ. IVP ONE (21:45)
[2021-09-01] MEDS ORDERED: LISINOPRIL 10 MG TABLET PO ONE (21:45)
[2021-09-01 22:12] LABS: BASO # 0.1 x10^3/uL (0.0-0.2); BASO % 1 % (0-3); EOS # 0.2 x10^3/uL (0.0-0.7); EOS % 2 % (0-3); HEMATOCRIT 45.6 % (36.0-47.0); HEMOGLOBIN 15.1 g/dL (12.0-15.5); LYMPH # 2.8 x10^3/uL (1.0-4.8); LYMPH % 26 % (24-48); MEAN CORPUSCULAR HEMOGLOBIN 30 pg (25-35); MEAN CORPUSCULAR HGB CONC 33 g/dL (31-37); MEAN CORPUSCULAR VOLUME 89 fL (79-100); MONO # 0.8 x10^3/uL (0.0-1.1); MONO % 8 % (0-9); NEUT # 6.7 x10^3/uL (1.8-7.7); NEUT % 64 % (31-73); PLATELET COUNT 250 x10^3/uL (140-400); RED BLOOD COUNT 5.11 x10^6/uL (3.50-5.40); RED CELL DISTRIBUTION WIDTH 13.2 % (11.5-14.5); WHITE BLOOD COUNT 10.6 x10^3/uL (4.0-11.0)
[2021-09-01 22:29] LABS: U PREG PATIENT NEGATIVE (NEG)
[2021-09-01 22:30] LABS: ALBUMIN 3.9 g/dL (3.4-5.0); ALBUMIN/GLOBULIN RATIO 0.9 (1.0-1.7); CALCIUM 9.3 mg/dL (8.5-10.1); CREATININE 0.8 mg/dL (0.6-1.0); GFR 78.7; POTASSIUM 3.7 mmol/L (3.5-5.1); TOTAL BILIRUBIN 0.1 mg/dL (0.2-1.0); TOTAL PROTEIN 8.3 g/dL (6.4-8.2)
[2021-09-01 22:36] LABS: BILIRUBIN,URINE NEGATIVE (NEG); CLARITY,URINE HAZY; COLOR,URINE YELLOW; NITRITE,URINE NEGATIVE (NEG); PH,URINE 5.5 (<5.0-8.0); PROTEIN,URINE NEGATIVE (NEG-TRACE); UROBILINOGEN,URINE 0.2 mg/dL (0.2 mg/dL)
[2021-09-01 22:37] LABS: AMORPHOUS SEDIMENT,UR PRESENT /HPF; BACTERIA,URINE MODERATE /HPF (0-FEW); RBC,URINE 0 /HPF (0-2)
--- NOTE | 2021-09-01 23:17 | RAD ---
XR CHEST 1V Clinical Indication: Reason: SOB / Spl. Instructions: / History: Comparison: AP chest October 27, 2017. Findings: The cardiomediastinal silhouette is normal. Lungs are clear. There is no pneumothorax. No pleural eff usion is appreciated. No acute bone abnormality. IMPRESSION: No acute cardiopulmonary process. Electronically signed by: Josue Hedrick MD (09/01/2021 11:15 PM) [facility]
--- NOTE | 2021-09-01 23:30 | PHYS DOC ---
Past Medical History Past Medical History: Hypertension, Kidney Stone Additional Past Medical Histor: chronic back pain, fibroids "POSSIBLE HEART DISEASE" Past Surgical History: Appendectomy, Tubal ligation, Other Additional Past Surgical Histo: "urinary stents", "ovary surgeries" Smoking Status: Never Smoker Alcohol Use: None Drug Use: None General Adult EDM: Chief Complaint: SHORTNESS OF BREATH HPI: HPI: Patient is a 41 year old female who presents with shortness of breath, back pain when taking a deep breath, urinary incontinence. Patient states that symptoms started a couple of days ago when she was laying in bed. Patient denies chest pain. Denies recent illness. No nausea/vomiting/diarrhea. Denies fevers. Patient has history of hypertension but has been noncompliant for the last 8 months, kidney stone. Review of Systems: Review of Systems: ROS At least 10 ROS systems have been reviewed and are negative except as documented in the HPI. General: Negative except as outlined in HPI above. Skin: Negative except as outlined in HPI above. HEENT: Negative except as outlined in HPI above. Neck: Negative except as outlined in HPI above. Respiratory: Negative except as outlined in HPI above.. Cardiovascular: Negative except as outlined in HPI above. Abdomen: Negative except as outlined in HPI above. : Negative except as outlined in HPI above. Back/MSK: Negative except as outlined in HPI above. Neuro: Negative except as outlined in HPI above. Psych: Negative except as outlined in HPI above. Heart Score: C/O Chest Pain: No Risk Factors: Risk Factors: DM, Current or recent (<one month) smoker, HTN, HLP, family history of CAD, obesity. Risk Scores: Score 0 - 3: 2.5% MACE over next 6 weeks - Discharge Home Score 4 - 6: 20.3% MACE over next 6 weeks - Admit for Clinical Observation Score 7 - 10: 72.7% MACE over next 6 weeks - Early Invasive Strategies Current Medications: Current Medications Medications (Trade) Dose Ordered Sig/Tameka Start Time Stop Time Status Last Admin Dose Admin Lisinopril (Prinivil) 20 mg 1X ONCE 09/01/21 21:45 09/01/21 21:53 DC 09/01/21 22:26 20 MG Morphine Sulfate (Morphine Sulfate) 4 mg 1X ONCE 09/01/21 21:45 09/01/21 21:53 DC 09/01/21 22:27 4 MG Allergies: Allergies: Allergies Coded Allergies Type Severity Reaction Last Updated Verified ketorolac Allergy Intermediate HIVES 10/08/18 Yes Physical Exam: PE: Constitutional: Well developed, well nourished, no acute distress, non-toxic appearance HENT: bilateral external ears normal, oropharynx moist, no oral exudates, nose normal Eyes: PERRLA, conjunctiva normal, no discharge. Neck: Normal range of motion, no tenderness, supple Cardiovascular: Sinus tachycardia, no murmur Lungs & Thorax: Bilateral breath sounds clear to auscultation Abdomen: Bowel sounds normal, soft, no tenderness Skin: Warm, dry, no erythema, no rash. Back: Tenderness to thoracic, no CVA tenderness. Extremities: No tenderness, ROM intact, no edema. Neurologic: Alert and oriented X 3, normal motor function, normal sensory function, no focal deficits noted Psychologic: Affect normal, tearful, anxious mood Current Patient Data: Labs: Laboratory Tests Test 09/01/21 21:15 09/01/21 21:34 Urine Collection Type Unknown Urine Color Yellow Urine Clarity Hazy Urine pH 5.5 (<5.0-8.0) Urine Specific Walker 1.025 (1.000-1.030) Urine Protein Negative mg/dL (NEG-TRACE) Urine Glucose (UA) Negative mg/dL (NEG) Urine Ketones (Stick) Negative mg/dL (NEG) Urine Blood Negative (NEG) Urine Nitrite Negative (NEG) Urine Bilirubin Negative (NEG) Urine Urobilinogen Dipstick 0.2 mg/dL (0.2 mg/dL) Urine Leukocyte Esterase Negative (NEG) Urine RBC 0 /HPF (0-2) Urine WBC 1-4 /HPF (0-4) Urine Squamous Epithelial Cells Many /LPF Urine Amorphous Sediment Present /HPF Urine Bacteria Moderate /HPF (0-FEW) Urine Mucus Slight /LPF Urine Test Negative (NEG) White Blood Count 10.6 x10^3/uL (4.0-11.0) Red Blood Count 5.11 x10^6/uL (3.50-5.40) Hemoglobin 15.1 g/dL (12.0-15.5) Hematocrit 45.6 % (36.0-47.0) Mean Corpuscular Volume 89 fL (79-100) Mean Corpuscular Hemoglobin 30 pg (25-35) Mean Corpuscular Hemoglobin Concent 33 g/dL (31-37) Red Cell Distribution Width 13.2 % (11.5-14.5) Platelet Count 250 x10^3/uL (140-400) Neutrophils (%) (Auto) 64 % (31-73) Lymphocytes (%) (Auto) 26 % (24-48) Monocytes (%) (Auto) 8 % (0-9) Eosinophils (%) (Auto) 2 % (0-3) Basophils (%) (Auto) 1 % (0-3) Neutrophils # (Auto) 6.7 x10^3/uL (1.8-7.7) Lymphocytes # (Auto) 2.8 x10^3/uL (1.0-4.8) Monocytes # (Auto) 0.8 x10^3/uL (0.0-1.1) Eosinophils # (Auto) 0.2 x10^3/uL (0.0-0.7) Basophils # (Auto) 0.1 x10^3/uL (0.0-0.2) D-Dimer (Nicol) 0.53 ug/mlFEU (0.00-0.50) H Sodium Level 139 mmol/L (136-145) Potassium Level 3.7 mmol/L (3.5-5.1) Chloride Level 104 mmol/L (98-107) Carbon Dioxide Level 27 mmol/L (21-32) Anion Gap 8 (6-14) Blood Urea Nitrogen 16 mg/dL (7-20) Creatinine 0.8 mg/dL (0.6-1.0) Estimated GFR (Cockcroft-Gault) 78.7 BUN/Creatinine Ratio 20 (6-20) Glucose Level 101 mg/dL (70-99) H Calcium Level 9.3 mg/dL (8.5-10.1) Total Bilirubin 0.1 mg/dL (0.2-1.0) L Aspartate Amino Transferase (AST) 15 U/L (15-37) Alanine Aminotransferase (ALT) 20 U/L (14-59) Alkaline Phosphatase 91 U/L (46-116) Troponin I High Sensitivity 14 ng/L (4-50) ER-Ouz-Z-Type Natriuretic Peptide 2686 pg/mL (0-124) H Total Protein 8.3 g/dL (6.4-8.2) H Albumin 3.9 g/dL (3.4-5.0) Albumin/Globulin Ratio 0.9 (1.0-1.7) L Laboratory Tests 09/01/21 21:34 Laboratory Tests 09/01/21 21:34 Vital Signs: Vital Signs Date Time Temp Pulse Resp B/P (MAP) Pulse Ox O2 Delivery O2 Flow Rate FiO2 09/01/21 22:27 18 97 Room Air 09/01/21 22:26 95 196/94 09/01/21 21:10 98.3 98.3 EKG: EKG: Sinus rhythm. Heart rate [address] elevation or depression. Read by Dr. Alfaro at 2235 Radiology/Procedures: Radiology/Procedures: []XR CHEST 1V Clinical Indication: Reason: SOB / Spl. Instructions: / History: Comparison: AP chest October 27, 2017. Findings: The cardiomediastinal silhouette is normal. Lungs are clear. There is no pneumothorax. No pleural effusion is appreciated. No acute bone abnormality. IMPRESSION: No acute cardiopulmonary process. Electronically signed by: Josue Hedrick MD (09/01/2021 11:15 PM) [facility] Course & Med Decision Making: Course & Med Decision Making Pertinent Labs and Imaging studies reviewed. (See chart for details) [] 41-year-old female who presents with multiple complaints. Patient reports that a few days ago she started having thoracic back pain that was exacerbated with taking a deep breath. Bilateral, burning arm pain, urinary incontinence. Patient denies any trauma or injury. Patient was able to provide urine on arrival when asked for a sample. Denies loss of bowel. No saddle anesthesia. Work-up in ER consisted of labs, urinalysis, EKG, chest x-ray, D-dimer. D-dimer is elevated, 0.53. CTA ordered. BNP 2686. All other labs are unremarkable. Troponin is negative. CTA is unremarkable. Negative for PE. Patient does have multiple small nodul es. Radiologist suggested follow-up CT in 12 months. Discussed all results with patient. Advised patient she should follow-up with cardiology early next week for further management. Sending patient home with a prescription for hydrocodone for pain along with lisinopril for blood pressure. Dragon Disclaimer: Dragon Disclaimer: This electronic medical record was generated, in whole or in part, using a voice recognition dictation system. Departure Departure Impression: Primary Impression: Acute thoracic back pain Qualified Codes: M54.6 - Pain in thoracic spine Additional Impression: Hypertension Qualified Codes: I10 - Essential (primary) hypertension Disposition: HOME / SELF CARE / HOMELESS Condition: STABLE Referrals: NO PCP (PCP) SHAKA VIDAL MD Patient Instructions: Back Pain, Adult, [id number], Hypertension Additional Instructions: You were seen in the emergency room for back pain, hypertension. All of your labs were unremarkable. CT of your chest was negative for pulmonary embolism. Your BNP was slightly elevated. It is important that you follow-up with cardiology to address that along with your hypertension. Administered you home with some pain medication along with 1 month prescription for blood pressure. Please return to the emergency room if you have worsening symptoms or concerns such as chest pain, shortness of breath. EMERGENCY DEPARTMENT GENERAL DISCHARGE INSTRUCTIONS Thank you for coming to [facility] Emergency Department (ED) today and trusting us with you care. We trust that you had a positive experience in our Emergency Department. If you wish to speak to the department management, you may call the Director at [phone]. YOUR FOLLOW UP INSTRUCTIONS ARE FOLLOWS: 1. Do you have a private Doctor? If you do not have a private doctor, please ask for a resource list of physicians or clinics that may be able to assist you with follow up care. 2. The Emergency Physicain has interpreted your x-rays. The X-Ray specialist will also review them. If there is a change in the findings, you will be notified in 48 hours when at all possible. 3. A lab test or culture has been done, your results will be reviewed and you will be notified if you need a change in treatment. ADDITIONAL INSTRUCTIONS AND INFORMATION: 1. Your care today has been supervised by a physician who is specially trained in emergency care. Many problems require more than one evaluation for a complete diagnosis and treatment. We recommend that you schedule your follow up appointment as recommended to ensure complete treatment of you illness or injury. If you are unable to obtain follow up care and continue to have a problem, or if your condition worsens, we recommend that you return to the ED. 2. We are not able to safely determine your condition over the phone nor are we able to give sound medical advice over the phone. For these safety reasons, if you call for medical advice we will ask you to come to the ED for further evaluation. 3. If you have any questions regarding these discharge instructions please call the ED at [phone]. SAFETY INFORMATION: In the interest of safety, wellness, and injury prevention; we encourage you to wear your sealbelt, if you smoke; quite smoking, and we encourage family to use a protective helmet for bicycling and other sporting events that present an increased risk for head injury. IF YOUR SYMPTOMS WORSEN OR NEW SYMPTOMS DEVELOP, OR YOU HAVE CONCERNS ABOUT YOUR CONDITION; OR IF YOUR CONDITION WORSENS WHILE YOU ARE WAITING FOR YOUR FOLLOW UP APPOINTMENT; EITHER CONTACT YOUR PRIMARY CARE DOCTOR, THE PHYSICIAN WHOSE NAME AND NUMBER YOU WERE GIVEN, OR RETURN TO THE ED IMMEDIATELY. Scripts Hydrocodone Bit/Acetaminophen (HYDROCODONE-APAP 5-325 ) 1 Tab Tablet 1 TAB PO PRN Q6HRS PRN for PAIN for 3 Days, #10 TAB 0 Refills Prov: MALACHI CORTEZ APRN 09/02/21 Lisinopril (LISINOPRIL) 20 Mg Tablet 1 TAB PO DAILY for htn for 30 Days, #30 TAB 5 Refills Prov: MALACHI CORTEZ APRN 09/02/21 MALACHI CORTEZ APRN Sep 01, 2021 23:30
[2021-09-01] MEDS ORDERED: CONTRAST GIVEN. MC PRN (23:45)
[2021-09-01] MEDS ORDERED: IOHEXOL 300 MG/ML 100ML VIAL. IV ONE (23:45)
[2021-09-02] MEDS ORDERED: IOHEXOL 350 MG/ML 100 ML VIAL. IV ONE (00:15)
[2021-09-02] MEDS ORDERED: CONTRAST GIVEN. MC PRN (00:15)
--- NOTE | 2021-09-02 00:28 | RAD ---
CT angiography chest with contrast PQRS statement: CT scans at this facility use dose reduction including either automated exposure cont rol, iterative reconstructions, and /or weight based radiation dosing via mA and kV modification when appropriate to reduce radiation dose to as low as reasonably achievable. HISTORY: Shortness of breath. Contrast: 100 mL Omnipaque 350 intravenous contrast with 3-D MIP projections of the arteries acquired . FINDINGS: Heart size is normal. Aorta and esophagus normal. No enlarged adenopathy. No pulmonary lexi ry emboli. Trachea and bronchi are unremarkable. 3 mm nodule left upper lobe image 38. Right upper lo be 3 mm linear scar or nodule image 20. No pulmonary opacities. Pleural effusions. Bilateral discoid atelectasis at the lung bases. IMPRESSION: 1. No pulmonary artery emboli. No acute process. 2. There are couple of small solid nodules of the upper lobes measuring up to 3 mm in size. Per Fleis chner guidelines if the patient has risk factors for malignancy optional CT chest imaging follow-up i n 12 months should be considered, otherwise no follow-up is necessary. Electronically signed by: Siva Conde MD (09/02/2021 12:26 AM) [facility]
[2021-09-02] MEDS ORDERED: HYDR-2761 PO (00:38)
[2021-09-02] MEDS ORDERED: LISI20TA18 PO (00:38)
[2021-09-02 01:00] VITALS: BP 164/98
== END 2021-09-02 00:20 | disposition home or self-care (01) ==
LOC: ER 21:06
DX: M54.6 Pain in thoracic spine (principal); R06.02 Shortness of breath; R32 Unspecified urinary incontinence; G89.29 Other chronic pain; I10 Essential (primary) hypertension; Z87.442 Personal history of urinary calculi; Z90.89 Acquired absence of other organs; Z98.51 Tubal ligation status; Z88.6 Allergy status to analgesic agent
CPT/HCPCS: 36415; 71045; 71275; 80053; 81001; 81025; 83880; 84484; 85025; 85379; 87086; 96374; 99285; J2270; Q9967